=== PATIENT | female | born 1970 | race Caucasian/White ===

== ENCOUNTER 2016-06-26 11:06 | Emergency (ER) | payer OTHER ==
[2016-06-26 11:22] VITALS: BP 135/80; PULSE 83; RESP 15; TEMP 97.9; O2SAT 96
--- NOTE | 2016-06-26 11:48 | UCPHY ---
H & P Time Seen by Provider: 06/26/16 11:28 Patient Type: Established HPI/ROS: 46-year-old female presents complaining of left thigh pain. She is concerned because chief friend or relative who had a serious complication secondary to a blood clot. Review of systems General no fever no chills no weakness HEENT no eye pain no eye discharge. No eye redness, no sore throat Respiratory no cough, no shortness of breath Cardiac no chest pain, no peripheral edema GI no abdominal pain, no diarrhea, no constipation, no nausea, no vomiting no flank pain, no hematuria, no dysuria Musculoskeletal positive myalgias, no joint pain Heme no easy bruising, no easy bleeding Endo no polyuria, no polydipsia Skin no rashes, no pruritus Neuro no syncope, no dizziness, no headaches Psych is no suicidal ideation, no homicidal ideation Past Medical/Surgical History: Hypothyroidism Smoking Status: Never smoked Physical Exam: 46-year-old female alert and oriented no acute distress nontoxic appearance afebrile Alert and oriented in no acute distress nontoxic appearance, afebrile Atraumatic normocephalic Neck no JVD Lungs clear to auscultation, no respiratory distress Heart regular rate and rhythm Extremities no cyanosis clubbing edema Left thigh with mild tenderness to palpation posterior aspect no obvious swelling no varicosities no ecchymoses Good range of motion at hip, knee, ankle Good capillary refill Distal pulses intact Constitutional: Initial Vital Signs Temperature (C) 36.6 C 06/26/16 11:19 Heart Rate 83 06/26/16 11:19 Respiratory Rate 15 06/26/16 11:19 Blood Pressure 135/80 H 06/26/16 11:19 O2 Sat (%) 96 06/26/16 11:19 O2 Delivery Mode Room Air Allergies/Adverse Reactions: codeine Allergy (Verified 06/26/16 11:19) Home Medications: Medication Instructions Recorded Cytomel 05/08/13 SYNTHROID 05/08/13 Medical Decision Making ED Course/Re-evaluation: Patient seen and evaluated for thigh pain, after large amount of walking in [facility] followed by flying. Differential diagnosis considered Muscle strain, deep vein thrombosis, rhabdomyolysis Ultrasound negative for DVT Impression Muscle strain Plan Rest ice anti-inflammatory Follow up with primary care physician Departure - Departure Disposition: Home, Routine, Self-Care Clinical Impression: Left thigh pain Condition: Good Instructions: Leg Pain (ED) Referrals: NELY WOLFE [Primary Care Provider] - As per Instructions - PQRS PQRS Measurement: na
== END 2016-06-26 13:34 | disposition home or self-care (01) ==
LOC: CED 11:06
DX: M79.652 Pain in left thigh (principal)
CPT/HCPCS: 93971-PO; G0463-PO

== ENCOUNTER → 2016-10-07 | Outpatient (CLI) | payer OTHER | LOC: CIMAGING 08:39 | PROVIDERS: ATTEND Internal Medicine | DX: M79.641 Pain in right hand (principal); M79.642 Pain in left hand; M79.671 Pain in right foot; M79.672 Pain in left foot | CPT/HCPCS: 73130-PO; 73630-PO ==